=== PATIENT | male | born 1935 | race Caucasian/White ===

== ENCOUNTER 2018-11-01 21:10 | Inpatient (IN) ==
[2018-11-02] MEDS ORDERED: Ondansetron 4 MG/2 ML VIAL IVP PRN (00:06)
[2018-11-02] MEDS ORDERED: Naloxone 0.4 MG/ML INJ IVP PRN (00:06)
[2018-11-02] MEDS ORDERED: *HR* Heparin 5,000 UNIT/ML VIAL IVP PRN ×2 (00:11)
[2018-11-02] MEDS ORDERED: *HR* Dextrose 50 % in Water (Syg) 50 ML SYRINGE IVP PRN (00:37)
[2018-11-02] MEDS ORDERED: Dextrose Gel 15 GM/37.5 ML TUBE PO PRN ×2 (00:37)
[2018-11-02] MEDS ORDERED: D5% in Water 1,000 ML IVC PRN (00:37)
[2018-11-02 00:54] LABS: Basophils % 0.2 %; Hematocrit 28.4 % (37.5-50.1); Hemoglobin 9.3 g/dL (12.9-16.9); Immature Granulocytes % 1.4 % (0-4); Lymphocytes % 8.3 %; Mean Corpuscular HGB Conc 32.7 g/dL (31.6-35.5); Mean Corpuscular Hemoglobin 30.9 pg (28.0-33.3); Mean Corpuscular Volume 94.4 fL (83.0-100.0); Mean Platelet Volume 9.8 fL (9.4-12.4); Monocytes # 0.9 K/mcL (0.0-1.3); Monocytes % 7.4 %; Neutrophils # 10.3 K/mcL (1.6-8.9); Platelet Count 232 K/mcL (140-400); Red Blood Count 3.01 M/mcL (4.19-5.50); Red Cell Distribution Width 16.2 % (11.5-14.5); Segmented Neutrophils % 82.7 %; White Blood Count 12.5 K/mcL (4.3-11.1)
[2018-11-02 01:03] LABS: INR 1.1; Prothrombin Time 12.3 Seconds (9.4-12.1)
[2018-11-02 01:06] LABS: Activated Partial Thrombo Time 53.1 Seconds (26.0-36.0)
[2018-11-02 01:11] LABS: Albumin 3.4 g/dL (3.5-5.7); Albumin/Globulin Ratio 1.3 (1.1-2.2); Bilirubin,Total 0.4 mg/dL (0.3-1.0); Calcium 9.5 mg/dL (8.6-10.3); Globulin 2.7 g/dL (2.4-3.5); Magnesium 2.2 mg/dL (1.6-2.6); Potassium 5.3 mEq/L (3.5-5.1); Total Protein 6.1 g/dL (6.4-8.9)
[2018-11-02 01:13] LABS: Troponin I 1.61 ng/mL (< 0.04)
[2018-11-02] MEDS: Heparin 25,000 UNIT/250 ML D5W 25,000 UNIT/250 ML IV.SOLN IVC SCH (01:20)
[2018-11-02] MEDS: Insulin DETEMIR 100 UNIT/ML X5UNITS SQ SCH ×2 (02:07→20:00)
--- NOTE | 2018-11-02 03:22 | Internal Med History&Physical ---
Date of Encounter: 11/02/18 Time of Encounter: 03:01 Internal Medicine - H&P: HPI Chief complaint: Chest pain/shortness of breath History of present illness: Mr. Starkey is a 83 year old male with a past medical history of hypertension, diabetes, coronary artery disease status post CABG, valvular disease status post bioprosthetic aortic valve replacement, chronic lung disease, chronic kidney disease and lung cancer transitioning to hospice care who initially presented to [facility] due to reports of chest pain and increasing shortness of breath. Patient states that around 4:30 this afternoon he began having right- sided chest pain described as sharp with radiation to his left arm. Patient states that he got up to go answer the door when the pain started. Patient took 2 nitroglycerin glycerin tablets which did not help. No aggravating or alleviating factors. Pain improved somewhat after EMS arrived and placed him on oxygen. Patient reportedly has been saturating in the 70s on room air for the past 2 days. He was 78% last Monday during a doctor's office visit. states that they were in the process of getting him home oxygen today. She also reports that he was diagnosed with lung cancer several weeks ago. Not currently on chemotherapy and radiation therapy. Initial laboratory workup at [place] showed a potassium of 6.2, BNP of 900 and initial troponin of 0.21. Lactic acid within normal limits. Patient received calcium gluconate, albuterol as well as dextrose and insulin. EKG reportedly showed sinus tachycardia with left bundle branch block and diffuse ST depressions. Chest x-ray was performed concerning for congestive heart failure with small bilateral pleural effusions. Patient received 40 mg of Lasix IV push. Repeat troponin came back elevated at 0.8 and patient was subsequently started on a heparin drip prior to transfer. On my assessment patient was currently on BiPAP. Does not appear to be in respiratory distress, mentating well. Denies any chest pain currently. Patient currently DNR CCA. Past Med Surg Social Fam HX - Past Medical History Medical history: arthritis, cancer, CHF, COPD, coronary artery disease, diabetes, GERD, hyperlipidemia, hypertension, myocardial infarction, renal disease - Past Surgical History Surgical History: cataract, colectomy, coronary bypass (CABG), vascular surgery Additional surgical history: stents, valve replacement - Social History Smoking Status: Former smoker Alcohol use: none Drug use: none Internal Medicine - H&P: Meds Albuterol Sulfate [Ventolin Hfa] 90 mcg IH Q4HR PRN 11/02/18 [History] Amlodipine Besylate 10 mg PO DAILY 11/02/18 [History] Aspirin [Lo-Dose Aspirin EC] 81 mg PO DAILY 11/02/18 [History] Bifidobacterium Infantis [Align] 4 mg PO DAILY 11/02/18 [History] Calcium 600 + Vit D Tablet 600 mg PO DAILY 11/02/18 [History] Cilostazol [Pletal] 100 mg PO BID 11/02/18 [History] Clopidogrel [Plavix] 75 mg PO DAILY 11/02/18 [History] Ezetimibe [Zetia] 10 mg PO DAILY 11/02/18 [History] Fish Oil/Dha/Epa [Fish Oil 1,200 mg Fish Oil] 1,200 mg PO BID 11/02/18 [History] Insulin ASPART [Novolog Flexpen] 3 unit SQ DAILY 11/02/18 [History] Insulin Glargine,Hum.rec.anlog [Lantus Solostar] 15 unit SQ DAILY 11/02/18 [History] Labetalol HCl 200 mg PO BID 11/02/18 [History] Multivit-Min/Iron/Folic Acid/K [Adults Multivitamin Tablet] 1 each PO DAILY 11/02/18 [History] Nitroglycerin [Nitrostat] 0.4 mg SL Q5MIN 11/02/18 [History] Ondansetron HCl 8 mg PO Q6HR PRN 11/02/18 [History] Allergy/AdvReac Type Severity Reaction Status Date / Time ciprofloxacin Allergy Hives Verified 11/02/18 00:19 Usizfzd-Sme-Zhg Reductase Allergy Muscle Pain Verified 11/02/18 00:19 Inhibitor All Systems PM: A 10-system review of systems was performed and is negative for pertinent findings except as documented above in the HPI. - Constitutional Constitutional: no chills, no fever(s), no night sweats - EENT Eyes: no change in vision, no discharge, no pain, no photophobia Ears: no ear discharge, no ear pain, no tinnitus Nose, mouth and throat: no dysphagia, no nasal discharge, no neck pain, no sore throat - Cardiovascular Cardiovascular ROS IM: no chest pain, no diaphoresis, no dyspnea, no lightheadedness, no palpitations, no syncope - Respiratory Respiratory: no cough, no dyspnea, no wheezing, no excessive phlegm production - Gastrointestinal Gastrointestinal: no abdominal pain, no diarrhea, no hematemesis, no hematochezia, no melena, no nausea, no vomiting - Musculoskeletal Musculoskeletal ROS IM: no numbness, no tingling - Integumentary Integumentary IM: no rash, no unusual bruising - Neurological Neurological ROS: no confusion, no convulsions, no focal weakness, no numbness, no tingling, no tremor(s) - Hematologic/Lymphatic Hematologic/Lymphatic: no easy bruising - Constitutional Vitals: Temp Pulse Resp BP Pulse Ox 97.7 F 96 20 164/73 92 11/02/18 00:28 11/02/18 00:28 11/02/18 00:28 11/02/18 00:28 11/02/18 00:28 Exam: General: Alert and oriented Skin:Normal color, no rash, no lesions. HEENT:EOM, pupils equal, round and reactive. Cardiovascular:Normal S1 & S2, no rubs, murmurs or gallops. No JVD. Pulse regular. Lungs: crackles appreciated on the right lower lung base Abdomen:Soft, non-tender, no rigidity. Extremities: 2+ pitting edema bilaterally Neurological:Normal cognition and motor skills. Pulses:Carotid and radial pulses normal +2. Rest of the physical exam is non contributory Internal Med - H&P Results - Labs CBC & Chem 7: 11/02/18 00:35 11/02/18 07:01 Labs: Short CBC 11/02/18 Range/Units 00:35 WBC 12.5 H D (4.3-11.1) K/mcL Hgb 9.3 L (12.9-16.9) g/dL Hct 28.4 L (37.5-50.1) % Plt Count 232 (140-400) K/mcL Neutrophils # 10.3 H (1.6-8.9) K/mcL BMP 11/02/18 00:35 Sodium 138 Potassium 5.3 H Chloride 109 H Carbon Dioxide 20 L BUN 69 H Creatinine 3.51 H Glucose 232 H Calcium 9.5 Cardiac Enzymes 11/02/18 Range/Units 00:35 Troponin I 1.61 H* (< 0.04) ng/mL Liver Function 11/02/18 Range/Units 00:35 Total Bilirubin 0.4 (0.3-1.0) mg/dL AST 19 (13-39) Units/L ALT 12 (7-52) Units/L Alkaline Phosphatase 182 H (34-104) Units/L Albumin 3.4 L (3.5-5.7) g/dL - Assessment and Plan (1) Acute respiratory failure with hypoxia Current Visit: Yes Status: Acute Assessment and plan: Patient presenting with acute hypoxic respiratory failure with O2 saturation in the 70s on room air in the setting of chronic lung disease, COPD, lung cancer, end-stage renal disease and what appears to be acute CHF exacerbation. Patient currently tolerating BiPAP and mentating well. Patient was planning to transiti on to hospice care tomorrow in the setting of his lung cancer and chronic lung disease. We will attempt to wean off BiPAP. Patient does not want intubation. -ABG obtained showing a pH of 7.4, PCO2 0.9, PO2 68.9 -Continue BiPAP. -Will treat with duo nebs given history of COPD. -Patient appears to still produce urine. We will continue to attempt to diuresis with Lasix. Appreciate cardiology and nephrology recommendations. (2) History of lung cancer Current Visit: Yes Status: Acute Assessment and plan: Patient reporting recent diagnosis of lung cancer not currently on chemotherapy or radiation therapy. Patient transitioning to hospice care today. -Consider palliative consult. (3) Chest pain Current Visit: Yes Status: Acute Assessment and plan: Patient presenting with right-sided chest pain which appears to be atypical. Found to have an elevated troponin of 0.21. Troponin trended to 0.8 and now 1.61. Currently on heparin drip. Initial EKG showing sinus tachycardia with left bundle branch block and diffuse ST depressions. Repeat EKG obtained here shows sinus rhythm with subtle ST depressions in lead to and V5. Given significant improvement in EKG, I suspect that patient's significant hypoxemia likely contributing to demand ischemia and the abnormal findings on EKG and elevation in troponin obtained at [place]. This would also corresponded with patient's reported improvement in chest pain after oxygenation. Currently on heparin drip. -Telemetry -Continue to trend troponin -Continue heparin drip -Sublingual nitroglycerin as needed -Echocardiogram -Consult cardiology Qualifiers: Chest pain type: unspecified Qualified Code(s): R07.9 - Chest pain, unspecified (4) Hyperkalemia Current Visit: Yes Status: Acute Assessment and plan: Patient found to have a potassium of 6.2 in the setting of end-stage renal disease. Received calcium gluconate, albuterol and dextrose/insulin prior to transfer. Repeat potassium here now 5.3. -We will give 1 time Kayexalate. -We will give a one-time dose of insulin per sliding scale given his hyperglycemia which should help his hyperkalemia. -Nephrology consult (5) Acute exacerbation of CHF (congestive heart failure) Current Visit: Yes Status: Acute Assessment and plan: Patient presenting with shortness of breath with elevated BNP of 900 and chest x-ray findings are consistent with congestive heart failure with small bilateral pleural effusions. Patient received one-time dose of Lasix prior to transfer. He did produce 150 mL of urine shortly after arrival. Most recent echo in Jun of this year showed an EF of 65% with indeterminate diastolic function. -Strict I's and O's; daily weight -We will start patient on 40 mg Lasix IV push twice a day -Follow up cardiology recommendations. Qualifiers: Heart failure type: unspecified Qualified Code(s): I50.9 - Heart failure, unspecified (6) End stage renal disease Current Visit: Yes Status: Acute Assessment and plan: End-stage renal disease. Creatinine 3.51. Patient still appears to be producing urine. -Given patient's hyperkalemia and volume overload will consult nephrology for help in management. - Time Spent With Patient Total time spent is greater than 50% in coordination of care (as documented) at patient's floor/unit and/or counseling patient:
[2018-11-02] MEDS: Ipratropium/Albuterol Neb 3 ML IH SCH ×6 (04:02→23:14)
[2018-11-02 04:07] LABS: ABG Base Excess -6 mEq/L (-2 to 3); ABG HCO3 18 mEq/L (21-27); ABG Oxygen Saturation 94 % (95-98); ABG PCO2 27 mmHg (35-45); ABG PH 7.43 pH Units (7.32-7.45); ABG PO2 69 mmHg (85-104); ABG TCO2 19 mEq/L (20-26); Blood Gas Modality BiLevel; Blood Gas VT 730 cc
[2018-11-02] MEDS ORDERED: Insulin LISPRO 300 UNITS/3 ML VIAL SQ SCH ×2 (04:15→07:30)
[2018-11-02] MEDS: Furosemide 40 MG/4 ML VIAL IVP SCH ×2 (05:36→09:27)
[2018-11-02] MEDS ORDERED: Furosemide 40 MG/4 ML VIAL IVP SCH (06:00)
[2018-11-02 07:53] LABS: Potassium 5.1 mEq/L (3.5-5.1)
[2018-11-02 08:02] LABS: Troponin I 2.26 ng/mL (< 0.04)
[2018-11-02 08:22] LABS: Estimated Average Glucose 143 mg/dl
[2018-11-02] MEDS ORDERED: (Ezetimibe [Zetia] 10 MG) PO SCH (09:00)
[2018-11-02] MEDS ORDERED: Perflutren Lipid Microsphere 1.3 ML in 0.9 % Sodium Chloride 8.7 ML IVP ONE (09:03)
[2018-11-02] MEDS: Insulin LISPRO 300 UNITS/3 ML VIAL SQ SCH ×4 (09:15→21:30)
[2018-11-02] MEDS: amLODIPine 5 MG TABLET PO SCH (09:26)
[2018-11-02] MEDS: Aspirin Enteric Coated 81 MG Tablet PO SCH (09:26)
--- NOTE | 2018-11-02 09:30 | Nephrology Consult Note ---
Date of Encounter: 11/02/18 Time of Encounter: 09:28 Assessment and Plan (1) Acute kidney injury superimposed on chronic kidney disease Current Visit: Yes Status: Acute This is an 83 y/o M with PMHx significant for Chronic Kidney Disease Stage 4, HTN, HLD, DM, CAD s/p CABG, Valvular heart disease s/p aortic valve replacement, lung cancer who initially presented to [facility] with chest pain and increasing shortness of breath - Presents with BUN/Cr = 70/3.58 with GFR = 16 (Baseline Cr = 2-3, and baseline GFR = 15-30 (CKD Stage IV)) - S/p dose of 40mg Lasix IVP - UO this AM = 200mL - Troponins trending up: 0.8 => 1.61 => 2.26; BNP = 900; Cardiology on board; recommend medical management - Hyperkalemic = 6.1 on presentation, which improved with medical therapy PLAN: Patient presents with Acute Kidney injury superimposed on chronic kidney disease stage IV. Patient presented with chest pain and elevated troponins suggesting NSTEMI. Phys exam shows 2+ pitting edema bilaterally. He is s/p initial dose of Lasix 40mg IVP. Patient's POLINA likely secondary to NSTEMI, and pre-renal in nature. - Renal Ultrasound to evaluate for structural abnormalities - Urine studies including UA, urine sodium, urine cr, urine eosinophils, urine microalbumin, urea - Daily BMPs; monitor kidney function - Stricts Is and Os - Daily weights - Renal Diet UPDATE: Given that patient is pursuing hospice, we do suggest hydration as needed, and other comfort measures as needed. (2) Hyperkalemia Current Visit: Yes Status: Acute Initial K = 6.2 - S/p calcium gluconate, albuterol, dextrose/ insulin - Repeat trending down K = 5.1 - EKG: Did show signs of mild ST Segment depression, but otherwise did not show peaked T waves, WI interval lengthening, widening QRS - Patient additionally given dose of Kayexalate PLAN: - Cont to monitor BMPs - Kayexalate as needed - Insulin sliding scale treating hyperglycemia - PRN Albuterol (3) CKD (chronic kidney disease) stage 4, GFR 15-29 ml/min Current Visit: Yes Status: Acute Hx of CKD Stage IV - Baseline Cr = 2-3, and baseline GFR = 15-30 (CKD Stage IV) - Pt still producing urine PLAN: - Monitor urine output - Outpatient Nephrology History of Present Illness - Reason for Consult Consult date: 11/02/18 end stage renal disease, hyperkalemia Requesting physician: Blossom Burns - Chief Complaint Right Sided Chest Pain and SOB - History of Present Illness This is an 83 y/o M with PMHx significant for Chronic Kidney Disease Stage 4, HTN, HLD, DM, CAD s/p CABG, Valvular heart disease s/p aortic valve replacement, lung cancer who initially presented to [facility] with chest pain and increasing shortness of breath. He reports one day history of sharp right sided chest pain with radiation to the left arm. Pain was initially not relieved with nitroglycerin. EMS was called and by the time they arrived, pain had resolved. Patient has been with O2 sats in 70s on RA for the past 2-3 days. Hx of Lung Cancer diagnosed only a few weeks ago, transitioning to hospice care. At [facility], initial workup indicated K = 6.2, with BNP = 900, a nd initial trop = 0.21. Patient received calcium gluconate, albuterol, dextrose, insulin. EKG initially showed sinus tachycardia with left bundle branch block and diffuse ST depressions. CXR indicated signs suggestive of CHF with b/l pleural effusions. Patient given dose of 40mg IVP Lasix. Repeat trop was elevated = 0.8. Patient was started on Heparin drip and transferred to [facility]. As of this morning, patient's vitals are hemodynamically stable. Oxygen saturation appropriate on BIPAP. Has made adequate UO as of this morning. Potassium has trended down with interventions, and at last check K = 5.1. BUN/Cr = 70/3.58 with GFR = 16 (Baseline Cr = 2-3, and baseline GFR = 15-30 (CKD Stage IV)) Troponin continues to rise with repeats = 1.61 => 2.26. Patient currently on Heparin drip. On my exam this morning, patient resting comfortably on BIPAP, currently in no acute distress. States that he previously saw Director Of Strategic Sales at [facility], but has not seen him in a while. He has never been on dialysis for any reason. Does note recent antibiotic use (he thinks he was prescribed Azithromycin) and notes recent decreased PO intake. However, has not noticed changed in urine output. Denies recent NSAID use, and does not take ACEI or ARB. Otherwise, denies confusion, headache, current chest pain, respiratory distress, abdominal pain, n/v/d. Exam was notable for 2+ pitting edema of B/L lower extremities. Nephrology was consulted due to hyperkalemia and POLINA on CKD. Past Med Surg Social Fam HX - Past Medical History Attestation: Yes The following information was validated with the patient. Source: patient, old records reviewed Medical history: arthritis, cancer, CHF, COPD, coronary artery disease, diabetes, GERD, hyperlipidemia, hypertension, myocardial infarction, renal disease - Past Surgical History Surgical History: cataract, colectomy, coronary bypass (CABG), vascular surgery Additional surgical history: stents, valve replacement - Social History Smoking Status: Former smoker Alcohol use: none Drug use: none Medications and Allergies Albuterol Sulfate [Ventolin Hfa] 90 mcg IH Q4HR PRN 11/02/18 [History] Amlodipine Besylate 10 mg PO DAILY 11/02/18 [History] Aspirin [Lo-Dose Aspirin EC] 81 mg PO DAILY 11/02/18 [History] Bifidobacterium Infantis [Align] 4 mg PO DAILY 11/02/18 [History] Calcium 600 + Vit D Tablet 600 mg PO DAILY 11/02/18 [History] Cilostazol [Pletal] 100 mg PO BID 11/02/18 [History] Clopidogrel [Plavix] 75 mg PO DAILY 11/02/18 [History] Ezetimibe [Zetia] 10 mg PO DAILY 11/02/18 [History] Fish Oil/Dha/Epa [Fish Oil 1,200 mg Fish Oil] 1,200 mg PO BID 11/02/18 [History] Insulin ASPART [Novolog Flexpen] 3 unit SQ DAILY 11/02/18 [History] Insulin Glargine,Hum.rec.anlog [Lantus Solostar] 15 unit SQ DAILY 11/02/18 [Hi story] Multivit-Min/Iron/Folic Acid/K [Adults Multivitamin Tablet] 1 each PO DAILY 11/02/18 [History] Nitroglycerin [Nitrostat] 0.4 mg SL Q5MIN 11/02/18 [History] RX: Labetalol HCl 200 mg PO BID 11/02/18 [History] RX: Ondansetron HCl 8 mg PO Q6HR PRN 11/02/18 [History] Allergy/AdvReac Type Severity Reaction Status Date / Time ciprofloxacin Allergy Hives Verified 11/02/18 00:19 Ufazfgw-[id number]-Frh Reductase Allergy Muscle Pain Verified 11/02/18 00:19 Inhibitor Review of Systems Constitutional: fatigue, lethargy, no frequent falls, no headache(s), no malaise Nose, mouth and throat: no dizziness, no facial pain, no headache(s), no neck pain Cardiovascular: chest pain, dyspnea, radiating jaw, neck or arm pain, no irregular heart rhythm, no palpitations, no syncope Respiratory: dyspnea Gastrointestinal: no abdominal pain, no diarrhea, no nausea, no vomiting Musculoskeletal: radiating pain into limb Integumentary: swelling Neurological: no confusion, no dizziness, no focal weakness, no headache(s), no syncope Exam - Vital Signs Vital signs: Initial Vital Signs Resp Pulse Ox 20 96 11/01/18 23:40 11/01/18 23:40 Vital Signs - Last 8 Hours Temp Pulse Resp BP Pulse Ox 11/02/18 07:45 97.5 F L 94 29 173/74 97 11/02/18 07:33 23 93 11/02/18 04:43 97.9 F 94 20 148/72 93 11/02/18 03:58 25 92 Intake and Output 11/01/18 11/02/18 11/02/18 23:59 07:59 15:59 Intake Total 160 / 160 Output Total 200 / 200 Balance -40 / -40 Intake: Oral 160 / 160 Output: Urine 200 / 200 Other: Stool Size Large Stool Consistency loose Stool Color Brown # Voids 1 Weight 65 kg 65 kg Blood Glucose* 258 139 Patient Weight 11/02/18 23:59 Weight 65 kg - General Appearance General appearance: well-developed, well-nourished, appears started age Exam: Resting comfortably at bedside on BIPAP. No acute distress. EENT: hearing intact Neck: no JVD Respiratory: clear Cardiology: no murmurs, normal S1, normal S2 Gastrointestinal: normoactive bowel sounds, no tenderness, no guarding, no organomegaly, no masses Integumentary: no rash, warm and dry Neurologic: no focal deficit, alert and oriented x3, strength 5/5 Musculoskeletal: no deformities, no cyanosis Additional Comments: 2+ Pitting Edema of B/L Lower Extremities Psychiatric: mood/affect appropriate Results - Lab Results 11/02/18 00:35 11/02/18 07:01 Most recent lab results 11/02/18 11/02/18 11/02/18 00:35 03:52 07:01 ABG pH 7.43 ABG pCO2 27 L ABG pO2 69 L ABG HCO3 18 L ABG O2 Saturation 94 L Calcium 9.5 10.0 Magnesium 2.2 - Image Kidney/bladder ultrasound: pending Consult Discharge Plan - Plan Referrals: Mary Anne Brown MD [Primary Care Provider] -
--- NOTE | 2018-11-02 11:56 | Cardiology Consult Note ---
Date of Encounter: 11/02/18 Time of Encounter: 10:30 Assessment and Plan (1) Chest pain Current Visit: Yes Status: Acute Given patient's DNR-CCA status and his verbalized desire to focus on being comfortable, no acute cardiac intervention is warranted. - Diuresis per nephrology's recommendations- - Continue BiPAP to maintain oxygenation status and comfort - Continue labetalol, aspirin, heparin - Continue amlodipine, cilostazol: Patient's history states CHF, but normal LVEF in June. BNP elevated this admit but negative for CHF per Ellis criteria. Qualifiers: Chest pain type: unspecified Qualified Code(s): R07.9 - Chest pain, unspecified Discussion w patient/family: The assessment and plan as outlined above was discussed with the patient and/or family members who expressed understanding and agreement. All questions were answered. Thank you for involving us in the care of your patient. Please call with any questions. History of Present Illness Consult date: 11/02/18 History of present illness: Mr. Starkey is a 83 year old male who came to [place] from [place] on 11/01/18 for CP with radiation to left arm for 1 day plus increasing SOB. O2 sat in 70s on RA. Of note, he was planning to go to hospice 2/2 diagnosis of stage 4 lung cancer a few weeks ago and CKD. He does not want to pursue chemo or radiation. Patient is DNR-CCA and stated here that he does not want interventions beyond medical management. At [place], trop elevated at 0.21, BNP 900, K+ 6.2. At [place] troponin uptrending and 2.26 at last check. EKG with LBBB, sinus tach and nonspecific ST depressions. CXR showed bilateral pleural effusions. Overall picture consistent with NSTEMI. PMH also significant for aortic valve replacement, CABG. Echo in June 2018 showed LVEF WNL at 65%. Today patient on BiPAP, states he is comfortable. Past Med Surg Social Fam HX - Past Medical History Medical history: arthritis, cancer, CHF, COPD, coronary artery disease, diabetes, GERD, hyperlipidemia, hypertension, myocardial infarction, renal disease - Past Surgical History Surgical History: cataract, colectomy, coronary bypass (CABG), vascular surgery Additional surgical history: stents, valve replacement - Social History Smoking Status: Former smoker Alcohol use: none Drug use: none Medications and Allergies Albuterol Sulfate [Ventolin Hfa] 90 mcg IH Q4HR PRN 11/02/18 [History] Amlodipine Besylate 10 mg PO DAILY 11/02/18 [History] Aspirin [Lo-Dose Aspirin EC] 81 mg PO DAILY 11/02/18 [History] Bifidobacterium Infantis [Align] 4 mg PO DAILY 11/02/18 [History] Calcium 600 + Vit D Tablet 600 mg PO DAILY 11/02/18 [History] Cilostazol [Pletal] 100 mg PO BID 11/02/18 [History] Clopidogrel [Plavix] 75 mg PO DAILY 11/02/18 [History] Ezetimibe [Zetia] 10 mg PO DAILY 11/02/18 [History] Fish Oil/Dha/Epa [Fish Oil 1,200 mg Fish Oil] 1,200 mg PO BID 11/02/18 [History] Insulin ASPART [Novolog Flexpen] 3 unit SQ DAILY 11/02/18 [History] Insulin Glargine,Hum.rec.anlog [Lantus Solostar] 15 unit SQ DAILY 11/02/18 [History] Labetalol HCl 200 mg PO BID 11/02/18 [History] Multivit-Min/Iron/Folic Acid/K [Adults Multivitamin Tablet] 1 each PO DAILY 11/02/18 [History] Nitroglycerin [Nitrostat] 0.4 mg SL Q5MIN 11/02/18 [History] Ondansetron HCl 8 mg PO Q6HR PRN 11/02/18 [History] Allergy/AdvReac Type Severity Reaction Status Date / Time ciprofloxacin Allergy Hives Verified 11/02/18 00:19 Cjolxvv-Dba-Ldc Reductase Allergy Muscle Pain Verified 11/02/18 00:19 Inhibitor All Systems Review: ROS limited due to patient on BiPAP, rapid desaturation when mask lifted to talk. - Cardiovascular Cardiovascular: chest pain with exertion - Respiratory Respiratory: other (Lung cancer stage IV, no chemo/rad) - Genitourinary Genitourinary: other (CKD) Physical Examination General: Conversant, No Apparent Distress HEENT: Atraumatic, Normocephaly, Mucus Membranes Moist Neck: No JVD, Normal carotid pulses Cardiac: Reg Rate and Rhythm, Normal S1 and S2, No Murmur Lungs: Normal Breath Sounds Neuro: Alert and responsive, No focal deficits noted Abdomen: Soft, Non-Tender Skin: No rashes noted on visualized skin Musculoskeletal: No Chest Wall Tenderness Extremities: No Clubbing, No Cyanosis, No Edema, Normal Pulses (Strong UE pulses bilaterally, LE palpable bilaterally but weak) Results 11/02/18 00:35 11/02/18 07:01 Lab Results 11/02/18 11/02/18 11/02/18 00:35 00:35 00:35 WBC 12.5 H D Hgb 9.3 L Hct 28.4 L Plt Count 232 INR 1.1 APTT 53.1 H Sodium 138 Potassium 5.3 H Chloride 109 H Carbon Dioxide 20 L BUN 69 H Creatinine 3.51 H Glucose 232 H Calcium 9.5 Magnesium 2.2 Total Bilirubin 0.4 AST 19 ALT 12 Alkaline Phosphatase 182 H Troponin I 1.61 H* B-Natriuretic Peptide 11/02/18 11/02/18 00:35 07:01 WBC Hgb Hct Plt Count INR APTT Sodium 141 Potassium 5.1 Chloride 109 H Carbon Dioxide 22 L BUN 70 H Creatinine 3.58 H Glucose 137 H Calcium 10.0 Magnesium Total Bilirubin AST ALT Alkaline Phosphatase Troponin I 2.26 H* B-Natriuretic Peptide 880 H - Imaging and Cardiology Chest Xray: report reviewed Consult Discharge Plan - Plan Referrals: Mary Anne Brown MD [Primary Care Provider] -
--- NOTE | 2018-11-02 12:54 | Event Note ---
Date of Encounter: 11/02/18 Time of Encounter: 10:00 H & P reviewed, pt seen at bedside. NSTEMI: Type I vs type II. Troponins continues to rise, weill trend for now but provided no escalation of care, cardiolgoy not plannig cath for the pt Resp failure with hypoxia: Due to underlying lung CA and heart failure, continues to be on BIPAP Heart faikure: continue to diurese with lasix 40mg BID. COntinues to be on BiPAP. Nephro on board Goals of care: per report , pt was being transitioned to be hospice. Will consult palliatve care if the pt can be trasnitoined from here as the prognosis seems dismal at this point consideing the active issues.
--- NOTE | 2018-11-02 14:48 | Event Note ---
Date of Encounter: 11/02/18 Time of Encounter: 12:00 Conducted bedside meeting with patient. Patient now off Bipap and on 10L Oxy mask. Patient states that he was recently diagnosed (within past couple weeks with lung cancer) Patient reports stage 4 lung cancer and decided to enroll in hospice care. He did not have a chance to be enrolled before suffering an event of chest pain resulting in a NSTEMI. Cardiology recommend conservative management with no cath. Called [facility] and Oxygen has been delivered to the home. Recommended hospital bed and bedside table to facilitate breathing and comfort. Patient agree to DME. Patients daughter is intake nurse at hospice agency and will be notified of DME need. Patient may need Bipap at home and this would be covered under hospice for comfort with dyspnea management. Family at bedside. Updated on POC. Patient placed back on Bipap for comfort.
[2018-11-02] MEDS: *HR* LORazepam 2 MG/ML VIAL IVP PRN ×2 (15:34→19:59)
[2018-11-03] MEDS: *HR* LORazepam 2 MG/ML VIAL IVP PRN ×6 (01:18→22:21)
[2018-11-03] MEDS: Ipratropium/Albuterol Neb 3 ML IH SCH ×6 (04:01→23:38)
[2018-11-03 04:32] LABS: Basophils % 0.3 %; Eosinophils # 0.1 K/mcL (0.0-0.6); Eosinophils % 0.5 %; Hematocrit 30.1 % (37.5-50.1); Hemoglobin 9.6 g/dL (12.9-16.9); Immature Granulocytes % 1.4 % (0-4); Lymphocytes # 2.1 K/mcL (0.6-4.6); Lymphocytes % 17.1 %; Mean Corpuscular HGB Conc 31.9 g/dL (31.6-35.5); Mean Corpuscular Hemoglobin 30.3 pg (28.0-33.3); Mean Platelet Volume 9.9 fL (9.4-12.4); Monocytes # 1.5 K/mcL (0.0-1.3); Monocytes % 11.8 %; Neutrophils # 8.6 K/mcL (1.6-8.9); Platelet Count 249 K/mcL (140-400); Red Blood Count 3.17 M/mcL (4.19-5.50); Red Cell Distribution Width 16.6 % (11.5-14.5); Segmented Neutrophils % 68.9 %; White Blood Count 12.4 K/mcL (4.3-11.1)
[2018-11-03 04:45] LABS: Potassium 4.1 mEq/L (3.5-5.1)
[2018-11-03 04:46] LABS: Calcium 9.3 mg/dL (8.6-10.3)
[2018-11-03] MEDS: Heparin 25,000 UNIT/250 ML D5W 25,000 UNIT/250 ML IV.SOLN IVC SCH ×2 (05:27→05:46)
[2018-11-03] MEDS: Insulin LISPRO 300 UNITS/3 ML VIAL SQ SCH ×4 (07:36→20:03)
[2018-11-03] MEDS: amLODIPine 5 MG TABLET PO SCH (09:33)
[2018-11-03] MEDS: Aspirin Enteric Coated 81 MG Tablet PO SCH (09:33)
--- NOTE | 2018-11-03 15:43 | Internal Med Progress Note ---
Hospitalist Progress Note - Encounter Date of Encounter: 11/03/18 Time of Encounter: 11:30 - Subjective Interval History: Patient lying down in bed. Initially had BiPAP mask on. Continues to have some cough. Reports that he is able to breathe easier but was desaturating into the 70s without oxygen during my evaluation. He was placed on nasal cannula with slow improvement to the 80s. Denies any chest pain. Wishes to go home with hospice tomorrow. - Exam Vitals: Temp Pulse Resp BP Pulse Ox 98.0 F 88 24 166/66 96 11/03/18 10:49 11/03/18 10:49 11/03/18 11:34 11/03/18 10:49 11/03/18 11:34 Exam: General: Patient is alert, moderate distress, oriented x 3 ENT: Mucous membranes moist Respiratory: Coarse breath sounds, basal crackles bilaterally Cardiovascular: Regular rate and rhythm. s1 and s2 normal No clicks, rubs, gallops, or murmurs. No pedal edema Abdomen: Abdomen is soft, nontender. Bowel sounds are present Musculoskeletal: Spontaneously moving all extremities Skin: warm, dry, intact. Neuro: Alert oriented x 3 normal cranial nerves, no focal deficits - Assessment and Plan (1) Acute respiratory failure with hypoxia Current Visit: Yes Status: Acute (2) History of lung cancer Current Visit: Yes Status: Acute (3) Chest pain Current Visit: Yes Status: Acute (4) Hyperkalemia Current Visit: Yes Status: Acute (5) Acute exacerbation of CHF (congestive heart failure) Current Visit: Yes Status: Acute (6) Acute kidney injury superimposed on chronic kidney disease Current Visit: Yes Status: Acute (7) CKD (chronic kidney disease) stage 4, GFR 15-29 ml/min Current Visit: Yes Status: Chronic DVT Prophylaxis: Patient on IV heparin drip - Summary of Assessment and Plan Summary of Assessment and Plan: Chest pain: Now resolved. Troponins peaked at 2.26 and are now trending down. Continue IV heparin drip for 24-48 hours per cardiology recommendations. Continue aspirin, Plavix and labetalol. Acute on chronic hypoxic respiratory failure: Continue O2 supplementation and BiPAP use as needed. Monitor vital signs. Goals of care: Patient wishes to go home with hospice. This will be arranged at discharge. Patient will most likely need BiPAP at home for comfort. He will a lso need home oxygen. Diabetes mellitus type 2: well-controlled. Continue diabetic diet and sliding scale insulin. Acute kidney injury on chronic kidney disease stage IV: Creatinine improving. Nephrology consult appreciated. Hyperkalemia has resolved. Creatinine 2.69 today. Acute diastolic congestive heart failure: Responded well to Lasix. Clinically doing better. Will repeat chest x-ray in morning. Will place patient on oral Lasix. History of lung cancer: Patient wishes to be on hospice. Will make arrangements for this and plan for discharge tomorrow. DVT prophylaxis: Patient is on IV heparin - Time Spent with Patient Total time spent is greater than 50% in coordination of care (as documented) at patient's floor/unit and/or counseling patient: Internal Medicine: Result - Labs CBC & Chem 7: 11/03/18 03:46 11/03/18 03:46 Labs: Short CBC 11/03/18 Range/Units 03:46 WBC 12.4 H (4.3-11.1) K/mcL Hgb 9.6 L (12.9-16.9) g/dL Hct 30.1 L (37.5-50.1) % Plt Count 249 (140-400) K/mcL Neutrophils # 8.6 (1.6-8.9) K/mcL BMP 11/03/18 03:46 Sodium 142 Potassium 4.1 Chloride 112 H Carbon Dioxide 21 L BUN 69 H Creatinine 2.69 H Glucose 43 L Calcium 9.3 - ABG Interpretation ABG results: ABG ABG pH 7.43 pH Units (7.32-7.45) 11/02/18 03:52 ABG pCO2 27 mmHg (35-45) L 11/02/18 03:52 ABG pO2 69 mmHg (85-104) L 11/02/18 03:52 ABG O2 Saturation 94 % (95-98) L 11/02/18 03:52 PT/INR, D-dimer PT 12.3 Seconds (9.4-12.1) H 11/02/18 00:35 Consult Discharge Plan - Plan Referrals: Mary Anne Brown MD [Primary Care Provider] - (3) Chest pain Qualifiers: Chest pain type: unspecified Qualified Code(s): R07.9 - Chest pain, unspecified (5) Acute exacerbation of CHF (congestive heart failure) Qualifiers: Heart failure type: unspecified Qualified Code(s): I50.9 - Heart failure, unspecified
[2018-11-03] MEDS ORDERED: traMADol 50 MG TABLET PO PRN (16:53)
[2018-11-03] MEDS: Furosemide 40 MG TABLET PO SCH (17:15)
[2018-11-03] MEDS: Insulin DETEMIR 100 UNIT/ML X5UNITS SQ SCH (21:49)
[2018-11-03] MEDS ORDERED: Saline Nasal Spray 44 ML BOTTLE NS PRN (22:03)
[2018-11-04] MEDS: *HR* LORazepam 2 MG/ML VIAL IVP PRN ×8 (01:00→20:47)
[2018-11-04] MEDS: Morphine Sulfate Oral CONC 10 MG/0.5 ML ORAL.SYG SL PRN ×4 (01:54→23:03)
[2018-11-04] MEDS: Heparin 25,000 UNIT/250 ML D5W 25,000 UNIT/250 ML IV.SOLN IVC SCH (01:54)
[2018-11-04] MEDS: Ipratropium/Albuterol Neb 3 ML IH SCH ×6 (03:17→23:34)
[2018-11-04 04:44] LABS: Basophils % 0.3 %; Eosinophils % 0.4 %; Hematocrit 25.9 % (37.5-50.1); Hemoglobin 8.2 g/dL (12.9-16.9); Immature Granulocytes % 0.8 % (0-4); Lymphocytes # 1.7 K/mcL (0.6-4.6); Lymphocytes % 17.2 %; Mean Corpuscular HGB Conc 31.7 g/dL (31.6-35.5); Mean Corpuscular Hemoglobin 30.5 pg (28.0-33.3); Mean Corpuscular Volume 96.3 fL (83.0-100.0); Mean Platelet Volume 10.4 fL (9.4-12.4); Monocytes % 10.3 %; Platelet Count 199 K/mcL (140-400); Red Blood Count 2.69 M/mcL (4.19-5.50); White Blood Count 9.9 K/mcL (4.3-11.1)
[2018-11-04 05:01] LABS: Potassium 4.5 mEq/L (3.5-5.1)
[2018-11-04] MEDS: amLODIPine 5 MG TABLET PO SCH (08:21)
[2018-11-04] MEDS: Furosemide 40 MG TABLET PO SCH ×2 (08:21→17:17)
[2018-11-04] MEDS: Aspirin Enteric Coated 81 MG Tablet PO SCH (08:22)
[2018-11-04] MEDS: Insulin LISPRO 300 UNITS/3 ML VIAL SQ SCH ×4 (08:27→21:30)
--- NOTE | 2018-11-04 14:22 | Internal Med Progress Note ---
Hospitalist Progress Note - Encounter Date of Encounter: 11/04/18 Time of Encounter: 10:00 - Subjective Interval History: Patient was seen with his family this area. He is alert but not oriented. He seems to use his accessory muscles with breathing. - Exam Vitals: Temp Pulse Resp BP Pulse Ox 97.7 F 80 20 145/56 90 11/04/18 11:57 11/04/18 11:57 11/04/18 11:57 11/04/18 11:57 11/04/18 11:57 Exam: General: Patient is alert, but not oriented x 3. Mild distress. ENT: Mucous membranes moist Respiratory: Coarse breath sounds, basal crackles bilaterally, use accessory muscles. Cardiovascular: Regular rate and rhythm. Trace pedal edema Abdomen: Abdomen is soft, nontender. Bowel sounds are present Musculoskeletal: Spontaneously moving all extremities Skin: warm, dry, intact. Neuro: Alert but not oriented x 3 - Assessment and Plan (1) Acute respiratory failure with hypoxia Current Visit: Yes Status: Acute (2) History of lung cancer Current Visit: Yes Status: Acute (3) Chest pain Current Visit: Yes Status: Resolved (4) Hyperkalemia Current Visit: Yes Status: Resolved (5) Acute exacerbation of CHF (congestive heart failure) Current Visit: Yes Status: Acute (6) Acute kidney injury superimposed on chronic kidney disease Current Visit: Yes Status: Acute (7) CKD (chronic kidney disease) stage 4, GFR 15-29 ml/min Current Visit: Yes Status: Chronic - Summary of Assessment and Plan Summary of Assessment and Plan: Mr. Starkey is a 83 year old male with a past medical history of hypertension, diabetes, coronary artery disease status post CABG, valvular disease status post bioprosthetic aortic valve replacement, chronic lung disease, chronic kidney disease and lung cancer transitioning to hospice care who initially presented to [facility] due to reports of chest pain and increasing shortness of breath. His symptoms were managed as following. Acute on chronic hypoxic respiratory failure: - X-ray at presentation revealed worsening interstitial edema and possible pneumonia. - Patient is requiring 15 L of high flow oxygen and BiPAP PRN - He has a newly diagnosed metastatic lung cancer 3 weeks ago and he wishes to go on hospice on comfort care. Continue with Lasix. - Discussed with the family that evening his comfort care, treatment would not be appropriate and his oxygen requirement my continued to be high. Chest pain: Now resolved. -Troponins peaked at 2.26 and are now trending down. Was on IV heparin drip for 48 hours per cardiology recommendations, dc today - Continue aspirin, Plavix and labetalol. Goals of care: - Patient wishes to go home with hospice. This will be arranged at discharge. Patient will most likely need BiPAP at home for comfort. He will also need home oxygen. Diabetes mellitus type 2: -well-controlled. Continue diabetic diet and sliding scale insulin. Acute kidney injury on chronic kidney disease stage IV: -Creatinine improving. Nephrology consult appreciated. Hyperkalemia has resolved. Creatinine 2.69 today. Acute decompensated HFpEF: -Responded well to Lasix. On oral Lasix 40 mg twice a day. i/o not well documented. History of lung cancer: -Patient wishes to be on hospice. Will make arrangements for this and plan for discharge tomorrow. Pulmonary hypertension. DVT prophylaxis: Patient is SC heparin - Time Spent with Patient Total time spent is greater than 50% in coordination of care (as documented) at patient's floor/unit and/or counseling patient: Plan of Care Discussed with: patient Internal Medicine: Result - Labs CBC & Chem 7: 11/04/18 03:47 11/04/18 03:47 Labs: Short CBC 11/04/18 Range/Units 03:47 WBC 9.9 (4.3-11.1) K/mcL Hgb 8.2 L (12.9-16.9) g/dL Hct 25.9 L (37.5-50.1) % Plt Count 199 (140-400) K/mcL Neutrophils # 7.0 (1.6-8.9) K/mcL BMP 11/04/18 03:47 Sodium 143 Potassium 4.5 Chloride 113 H Carbon Dioxide 21 L BUN 71 H Creatinine 2.42 H Glucose 143 H Calcium 9.0 - ABG Interpretation ABG results: ABG ABG pH 7.43 pH Units (7.32-7.45) 11/02/18 03:52 ABG pCO2 27 mmHg (35-45) L 11/02/18 03:52 ABG pO2 69 mmHg (85-104) L 11/02/18 03:52 ABG O2 Saturation 94 % (95-98) L 11/02/18 03:52 PT/INR, D-dimer PT 12.3 Seconds (9.4-12.1) H 11/02/18 00:35 Consult Discharge Plan - Plan Referrals: Mary Anne Brown MD [Primary Care Provider] - (3) Chest pain Qualifiers: Chest pain type: unspecified Qualified Code(s): R07.9 - Chest pain, unspecified (5) Acute exacerbation of CHF (congestive heart failure) Qualifiers: Heart failure type: unspecified Qualified Code(s): I50.9 - Heart failure, unspecified
[2018-11-04] MEDS: *HR* Heparin 5,000 UNIT/ML VIAL SQ SCH (17:17)
[2018-11-04] MEDS: Insulin DETEMIR 100 UNIT/ML X5UNITS SQ SCH (21:30)
[2018-11-05] MEDS: Ipratropium/Albuterol Neb 3 ML IH SCH ×3 (04:23→11:25)
[2018-11-05] MEDS: *HR* LORazepam 2 MG/ML VIAL IVP PRN (05:24)
[2018-11-05] MEDS: *HR* Heparin 5,000 UNIT/ML VIAL SQ SCH (05:27)
[2018-11-05] MEDS: Insulin LISPRO 300 UNITS/3 ML VIAL SQ SCH ×2 (07:35→11:09)
[2018-11-05] MEDS: Furosemide 40 MG TABLET PO SCH (07:45)
[2018-11-05] MEDS: amLODIPine 5 MG TABLET PO SCH (07:45)
[2018-11-05] MEDS: Aspirin Enteric Coated 81 MG Tablet PO SCH (07:45)
[2018-11-05] MEDS ORDERED: Haloperidol Oral Conc 10 MG/5 ML UDC PO PRN (10:39)
[2018-11-05] MEDS: *HR* LORazepam Oral Conc 2 MG/ML SL PRN ×2 (11:14→13:33)
[2018-11-05 11:55] VITALS: BP 147/54
--- NOTE | 2018-11-05 11:59 | Palliative - Consult Note ---
Date of Encounter: 11/05/18 Time of Encounter: 09:30 - Assessment and Plan (1) Acute respiratory failure with hypoxia Current Visit: Yes Status: Acute Assessment and plan: Off Bipap since yesterday. On Oxygen nc 10L, O2sat 78% Morphine 5 mg q4hrs prn (2) Agitation Current Visit: Yes Status: Acute Assessment and plan: Patient receiving Ativan 1 mg IV prn, 8 doses in 24 hrs. Pt to be discharged home. will change Ativan to SL will add haldol TID. (3) Counseling regarding advance care planning and goals of care Current Visit: Yes Status: Acute Assessment and plan: 35 minutes meeting with pt's , daughter and son. Patient unable to participate in conversation. Family confirmed that pt wants home hospice. Discussed that in dipti of worsening of symptoms, pt will qualify for GIP, but family stated that pt's most important wish at this point is to return home. Daughter stated that equipment have been delivered. No Bipap was ordered, per family pt was more confused and agitated with Bipap so they declined. Plan of care reviewed. Code status chenged to DNRCC, documentation signed and to be added to medical record. Discussed with primary hospitalist and nursing to coordinate discharge. Prescriptions for Haldol, ativan and morphine provided. (4) Acute exacerbation of CHF (congestive heart failure) Current Visit: Yes Status: Acute Qualifiers: Heart failure type: unspecified Qualified Code(s): I50.9 - Heart failure, unspecified (5) Acute kidney injury superimposed on chronic kidney disease Current Visit: Yes Status: Acute (6) History of lung cancer Current Visit: Yes Status: Acute (7) Palliative care encounter Current Visit: Yes Status: Acute Palliative-CN HPI - Data of Consult Consult date: 11/03/18 Requesting Physician: Ervin Agrawal Primary Care Provider: Mary Anne Brown MD - Consult Narrative Palliative Care/Comfort Measures: Palliative care Reason for consult: Hospice evaluation History of present illness: Mr. Starkey is a 83 year old male with a past medical history of hypertension, diabetes, coronary artery disease status post CABG, valvular disease status post bioprosthetic aortic valve replacement, chronic lung disease, chronic kidney disease and lung cancer, who initially presented to [facility] due to reports of chest pain and increasing shortness of breath. Patient was admitted for NSTEMI, Cardiology recommend conservative management with no cath. Per record patient was recently diagnosed (within past couple weeks) with stage 4 lung cancer and decided to enroll in hospice care. He did not have a chance to be enrolled before suffering an event of chest pain resulting in a NSTEMI. Palliative consult was called for hospice eval. Palliative care RECORDIST Ani saw patient on 11/03 and confirmed wishes for home with hospice, [facility] was called. However, patient was not discharged during the week-end. Today noticed increased use of lorazepam 8 doses in 24hrs and morphine 5 doses in 24 hrs. At the time of exam, pt was drowsy, responsive to name calling, but became agitated once aroused. Per family present at the bedside, patient's agitated may be related to the fact that he wants to go back home. CC: Ervin Agrawal - Time Spent with Patient Time: Total time spent is greater than 50% in coordination of care (as documented) at patient's floor/unit and/or counseling patient: Time with patient: 60 minutes (40 minutes with patient as documented, 20 minutes chart review and documentation.) Past Med Surg Social Fam HX - Past Medical History Medical history: arthritis, cancer, CHF, COPD, coronary artery disease, diabetes, GERD, hyperlipidemia, hypertension, myocardial infarction, renal disease - Past Surgical History Surgical History: cataract, colectomy, coronary bypass (CABG), vascular surgery Additional surgical history: stents, valve replacement - Social History Smoking Status: Former smoker Alcohol use: none Drug use: none Medications and Allergies Albuterol Sulfate [Ventolin Hfa] 2 puff IH Q4HR PRN 11/02/18 [History] Amlodipine Besylate 10 mg PO DAILY 11/02/18 [History] Aspirin [Lo-Dose Aspirin EC] 81 mg PO DAILY 11/02/18 [History] Bifidobacterium Infantis [Align] 4 mg PO DAILY 11/02/18 [History] Calcium Carbonate/Vitamin D3 [Calcium 600 + Vit D Softgel] 1 cap PO DAILY 11/02/18 [History] Cilostazol [Pletal] 100 mg PO BID 11/02/18 [History] Clopidogrel [Plavix] 75 mg PO DAILY 11/02/18 [History] Ezetimibe [Zetia] 10 mg PO DAILY 11/02/18 [History] Fish Oil/Dha/Epa [Fish Oil 1,200 mg Fish Oil] 1,200 mg PO BID 11/02/18 [History] Insulin ASPART [Novolog Flexpen] 3 unit SQ TIDWM 11/02/18 [History] Insulin Glargine,Hum.rec.anlog [Lantus Solostar] 15 unit SQ DAILY 11/02/18 [History] Labetalol HCl 200 mg PO BID 11/02/18 [History] Multivit-Min/Iron/Folic Acid/K [Adults Multivitamin Tablet] 1 each PO DAILY 11/02/18 [History] Nitroglycerin [Nitrostat] 0.4 mg SL Q5MIN 11/02/18 [History] Ondansetron HCl 8 mg PO Q6HR PRN 11/02/18 [History] Tramadol HCl [Ultram] 50 mg PO Q6H PRN 11/02/18 [History] predniSONE [PredniSONE] 60 mg PO DAILY 11/02/18 [History] Furosemide [Lasix] 40 mg PO BIDDIURETIC #60 tablet 11/05/18 [Rx] GuaiFENesin/Dextromethorphan [Robitussin/Dm] 5 ml PO Q6H PRN #60 udc 11/05/18 [Rx] Haloperidol Oral Conc [Haldol] 1 mg PO TID PRN 3 Days #10 mls 11/05/18 [Rx] LORazepam Oral Conc [Ativan Oral Conc] 1 mg PO Q3H PRN 3 Days #10 mls 11/05/18 [Rx] Morphine Sulfate Oral CONC [Roxanol Oral Conc] 5 mg PO Q3H PRN 4 Days #10 oral.syg 11/05/18 [Rx] Allergy/AdvReac Type Severity Reaction Status Date / Time ciprofloxacin Allergy Hives Verified 11/02/18 00:19 [id number] Reductase Allergy Muscle Pain Verified 11/02/18 00:19 Inhibitor ROS unobtainable: due to mental status Palliative Care-Exam - Constitutional Vitals: Temp Pulse Resp BP Pulse Ox 98.2 F 78 19 147/54 90 11/05/18 11:53 11/05/18 11:53 11/05/18 11:53 11/05/18 11:53 11/05/18 11:53 Exam: General: Patient is drowsy, confused. ENT: Mucous membranes moist Respiratory: Coarse breath sounds, basal crackles bilaterally, use accessory muscles. Cardiovascular: Regular rate and rhythm. Trace pedal edema Abdomen: Abdomen is soft, nontender. Bowel sounds are present Musculoskeletal: Spontaneously moving all extremities Skin: warm, dry, intact. Neuro: drowsy and confused, moving all limbs, agitated. Internal Medicine - CN: Reslt - Labs CBC & Chem 7: 11/04/18 03:47 11/04/18 03:47 - ABG Interpretation ABG results: ABG ABG pH 7.43 pH Units (7.32-7.45) 11/02/18 03:52 ABG pCO2 27 mmHg (35-45) L 11/02/18 03:52 ABG pO2 69 mmHg (85-104) L 11/02/18 03:52 ABG O2 Saturation 94 % (95-98) L 11/02/18 03:52 PT/INR, D-dimer PT 12.3 Seconds (9.4-12.1) H 11/02/18 00:35 Consult Discharge Plan - Plan Instructions: Acute Respiratory Distress Syndrome (DC), Hospice Care (GEN) Referrals: Mary Anne Brown MD [Primary Care Provider] - Prescriptions: LORazepam Oral Conc [Ativan Oral Conc] 1 mg PO Q3H PRN 3 Days #10 mls PRN Reason: Anxiety Haloperidol Oral Conc [Haldol] 1 mg PO TID PRN 3 Days #10 mls PRN Reason: Agitation Furosemide [Lasix] 40 mg PO BIDDIURETIC #60 tablet GuaiFENesin/Dextromethorphan [Robitussin/Dm] 5 ml PO Q6H PRN #60 udc PRN Reason: Cough Morphine Sulfate Oral CONC [Roxanol Oral Conc] 5 mg PO Q3H PRN 4 Days #10 oral.syg PRN Reason: Dyspnea Palliative Quality Palliative Quality: Screen for Code Status: Yes, Screen for Goals of Care: Yes, Screen for Pain: Yes, If Pain Regimen Started, Initiate Bowel Regimen: Yes, Screen for Nausea/Vomitting: Yes Code Status: 11/02/18 00:06 Resuscitation Status: Active [RES] Routine Comment: Resuscitation Status: DNR-Comfort Care-Arrest 11/02/18 15:01 DNR [Resuscitation Status: Active] [RES] Routine Comment: Resuscitation Status: [id number] 11/05/18 10:50 Resuscitation Status: Active [RES] Routine Comment: Resuscitation Status: DNR-Comfort Care Palliative Scale - Palliative Performance Scale How ambulatory is this patient?: Mainly in bed What is patient's level of activity and evidence of disease?: Unable to do any work, Extensive disease How much self-care assistance does patient require?: Total care How much oral intake does the patient have?: Minimal to sips What is this patient's level of consciousness?: Full or confusion Palliative Performance Score: 30 %
--- NOTE | 2018-11-05 12:22 | Discharge Summary ---
- NOTES TO OUTPATIENT PROVIDER Notes to Outpatient Provider: Follow-up with home hospice service. Orders not resulted at time of discharge: Pending orders 11/02/18 12:20 Urinalysis Reflex Cult & Micro [URIN] Routine 11/02/18 12:23 Eosinophil,Urine [URIN] Routine Date of Encounter: 11/05/18 Time of Encounter: 11:00 - Discharge Diagnosis (1) Acute respiratory failure with hypoxia Priority: Primary Status: Acute (2) History of lung cancer Priority: Secondary Status: Acute (3) Chest pain Priority: Secondary Status: Resolved Qualifiers: Qualified Code(s): R07.9 - Chest pain, unspecified (4) Hyperkalemia Priority: Secondary Status: Resolved (5) Acute exacerbation of CHF (congestive heart failure) Priority: Secondary Status: Acute Qualifiers: Qualified Code(s): I50.9 - Heart failure, unspecified (6) Acute kidney injury superimposed on chronic kidney disease Priority: Secondary Status: Acute (7) CKD (chronic kidney disease) stage 4, GFR 15-29 ml/min Priority: Secondary Status: Chronic Hospital course: Mr. 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 Chest x-ray initially showed increased interstitial marking suspecting for pneumonia versus worsening his underlying lung disease. Patient and his family preference was to transition to home hospice. The family opted for comfort care and withdrawal of life prolonging medications thus no antibiotics were given to the patient. Palliative team was consulted and they help to arrange for home hospice and prescription medications. He was also noted to have increase oxygen requirements up to 15 L. Palliative team arranged for home oxygen and hospital bed at home. Patient could not tolerate BiPAP for which the family asked not to order it. Today, patient will be discharged to home hospice. Discharge discussed with: patient - Time Spent with Patient Total time spent providing and/or coordinating discharge services: 50 minutes - Discharge Medications Prescriptions: New LORazepam Oral Conc [Ativan Oral Conc] 1 mg PO Q3H PRN 3 Days #10 mls PRN Reason: Anxiety Haloperidol Oral Conc [Haldol] 1 mg PO TID PRN 3 Days #10 mls PRN Reason: Agitation Morphine Sulfate Oral CONC [Roxanol Oral Conc] 5 mg PO Q3H PRN 4 Days #10 oral.syg PRN Reason: Dyspnea Furosemide [Lasix] 40 mg PO BIDDIURETIC #60 tablet GuaiFENesin/Dextromethorphan [Robitussin/Dm] 5 ml PO Q6H PRN #60 udc PRN Reason: Cough Continued Clopidogrel [Plavix] 75 mg PO DAILY Cilostazol [Pletal] 100 mg PO BID Ondansetron HCl 8 mg PO Q6HR PRN PRN Reason: Nausea Nitroglycerin [Nitrostat] 0.4 mg SL Q5MIN Multivit-Min/Iron/Folic Acid/K [Adults Multivitamin Tablet] 1 each PO DAILY Labetalol HCl 200 mg PO BID Insulin Glargine,Hum.rec.anlog [Lantus Solostar] 15 unit SQ DAILY Insulin ASPART [Novolog Flexpen] 3 unit SQ TIDWM Fish Oil/Dha/Epa [Fish Oil 1,200 mg Fish Oil] 1,200 mg PO BID Ezetimibe [Zetia] 10 mg PO DAILY Calcium Carbonate/Vitamin D3 [Calcium 600 + Vit D Softgel] 1 cap PO DAILY Bifidobacterium Infantis [Align] 4 mg PO DAILY Aspirin [Lo-Dose Aspirin EC] 81 mg PO DAILY Amlodipine Besylate 10 mg PO DAILY Albuterol Sulfate [Ventolin Hfa] 2 puff IH Q4HR PRN PRN Reason: Shortness Of Breath/Wheezing predniSONE [PredniSONE] 60 mg PO DAILY Tramadol HCl [Ultram] 50 mg PO Q6H PRN PRN Reason: Pain Discontinued Azithromycin 250 mg PO DAILY Home Medications: Albuterol Sulfate [Ventolin Hfa] 2 puff IH Q4HR PRN 11/02/18 [History] Amlodipine Besylate 10 mg PO DAILY 11/02/18 [History] Aspirin [Lo-Dose Aspirin EC] 81 mg PO DAILY 11/02/18 [History] Bifidobacterium Infantis [Align] 4 mg PO DAILY 11/02/18 [History] Calcium Carbonate/Vitamin D3 [Calcium 600 + Vit D Softgel] 1 cap PO DAILY 11/02/18 [History] Cilostazol [Pletal] 100 mg PO BID 11/02/18 [History] Clopidogrel [Plavix] 75 mg PO DAILY 11/02/18 [History] Ezetimibe [Zetia] 10 mg PO DAILY 11/02/18 [History] Fish Oil/Dha/Epa [Fish Oil 1,200 mg Fish Oil] 1,200 mg PO BID 11/02/18 [History] Insulin ASPART [Novolog Flexpen] 3 unit SQ TIDWM 11/02/18 [History] Insulin Glargine,Hum.rec.anlog [Lantus Solostar] 15 unit SQ DAILY 11/02/18 [History] Labetalol HCl 200 mg PO BID 11/02/18 [History] Multivit-Min/Iron/Folic Acid/K [Adults Multivitamin Tablet] 1 each PO DAILY 11/02/18 [History] Nitroglycerin [Nitrostat] 0.4 mg SL Q5MIN 11/02/18 [History] Ondansetron HCl 8 mg PO Q6HR PRN 11/02/18 [History] Tramadol HCl [Ultram] 50 mg PO Q6H PRN 11/02/18 [History] predniSONE [PredniSONE] 60 mg PO DAILY 11/02/18 [History] Furosemide [Lasix] 40 mg PO BIDDIURETIC #60 tablet 11/05/18 [Rx] GuaiFENesin/Dextromethorphan [Robitussin/Dm] 5 ml PO Q6H PRN #60 udc 11/05/18 [Rx] Haloperidol Oral Conc [Haldol] 1 mg PO TID PRN 3 Days #10 mls 11/05/18 [Rx] LORazepam Oral Conc [Ativan Oral Conc] 1 mg PO Q3H PRN 3 Days #10 mls 11/05/18 [Rx] Morphine Sulfate Oral CONC [Roxanol Oral Conc] 5 mg PO Q3H PRN 4 Days #10 oral.syg 11/05/18 [Rx] Allergies/Adverse Reactions: Allergy/AdvReac Type Severity Reaction Status Date / Time ciprofloxacin Allergy Hives Verified 11/02/18 00:19 [id number] Reductase Allergy Muscle Pain Verified 11/02/18 00:19 Inhibitor Date of admission: 11/02/18 00:10 Primary care physician: Mary Anne Brown MD Consults: 11/02/18 00:09 Consult to Cardiology [CONS] Routine Comment: Consulting Provider: [facility] [place] Reason for Consult: Chest pain concerning for ACS/CHF Call Completed: No 11/02/18 04:09 Consult to Nephrology [CONS] Routine Consulting Provider: Kidney Nath[facility]/DARWIN/ANDREW/JAYDON Reason for Consult: End-stage renal disease; hyperkalemia Call Completed: No 11/02/18 09:33 Consult to Nurse Navigator [CONS] Routine Comment: copd 11/02/18 11:18 Consult to Palliative Care [CONS] Routine Comment: Consulting Provider: Palliative [facility] [place] Reason for Consult: Goasl of care discussion and hospice referral Call Completed: Yes - Constitutional Vitals: Temp Pulse Resp BP Pulse Ox 98.2 F 78 19 147/54 90 11/05/18 11:53 11/05/18 11:53 11/05/18 11:53 11/05/18 11:53 11/05/18 11:53 Exam: General: Patient is alert, but not oriented x 3. Mild distress. ENT: Mucous membranes moist Respiratory: Coarse breath sounds, basal crackles bilaterally, use accessory muscles. Cardiovascular: Regular rate and rhythm. Trace pedal edema, right upper sternal ejection murmur. Abdomen: Abdomen is soft, nontender. Bowel sounds are present Musculoskeletal: Spontaneously moving all extremities Skin: warm, dry, intact. Neuro: Alert but not oriented x 3 - Patient Status Disposition: Hospice - Home Condition: Fair Functional capacity at discharge: bed bound Overall status at discharge: patient is not back to baseline - Discharge Instructions Instructions: Acute Respiratory Distress Syndrome (DC), Hospice Care (GEN) Follow Up With: Mary Anne Brown MD [Primary Care Provider] - - Diet and Activity Activity: other (bed bound) Diet: low salt diet
--- NOTE | 2018-11-05 12:33 | Physician Discharge Referral ---
Home Health/Hosp Referral Info Transfer to: Home Health, Hospice Provider in Charge Post Discharge: Operations Research Scientist - Diagnosis (1) Acute respiratory failure with hypoxia Priority: Primary Status: Acute (2) History of lung cancer Priority: Secondary Status: Acute (3) Chest pain Priority: Secondary Status: Resolved (4) Hyperkalemia Priority: Secondary Status: Resolved (5) Acute exacerbation of CHF (congestive heart failure) Priority: Secondary Status: Acute (6) Acute kidney injury superimposed on chronic kidney disease Priority: Secondary Status: Acute (7) CKD (chronic kidney disease) stage 4, GFR 15-29 ml/min Priority: Secondary Status: Chronic - Respiratory Orders Oxygen / L per min (15) Smoking Cessation: Smoking cessation has been advised. For more information, call the [employer] Quit Line at 8-877-TMTF-NOW. - Diet/Nutrition Diet/Nutrition Orders: Cardiac - Activity Activity Orders: Bedrest - Services Needed Home Care Orders: home hospice - Transfer Medications Prescriptions: LORazepam Oral Conc [Ativan Oral Conc] 1 mg PO Q3H PRN 3 Days #10 mls PRN Reason: Anxiety Haloperidol Oral Conc [Haldol] 1 mg PO TID PRN 3 Days #10 mls PRN Reason: Agitation Furosemide [Lasix] 40 mg PO BIDDIURETIC #60 tablet GuaiFENesin/Dextromethorphan [Robitussin/Dm] 5 ml PO Q6H PRN #60 udc PRN Reason: Cough Morphine Sulfate Oral CONC [Roxanol Oral Conc] 5 mg PO Q3H PRN 4 Days #10 oral.syg PRN Reason: Dyspnea Home Medications: Albuterol Sulfate [Ventolin Hfa] 2 puff IH Q4HR PRN 11/02/18 [History] Amlodipine Besylate 10 mg PO DAILY 11/02/18 [History] Aspirin [Lo-Dose Aspirin EC] 81 mg PO DAILY 11/02/18 [History] Bifidobacterium Infantis [Align] 4 mg PO DAILY 11/02/18 [History] Calcium Carbonate/Vitamin D3 [Calcium 600 + Vit D Softgel] 1 cap PO DAILY 11/02/18 [History] Cilostazol [Pletal] 100 mg PO BID 11/02/18 [History] Clopidogrel [Plavix] 75 mg PO DAILY 11/02/18 [History] Ezetimibe [Zetia] 10 mg PO DAILY 11/02/18 [History] Fish Oil/Dha/Epa [Fish Oil 1,200 mg Fish Oil] 1,200 mg PO BID 11/02/18 [History] Insulin ASPART [Novolog Flexpen] 3 unit SQ TIDWM 11/02/18 [History] Insulin Glargine,Hum.rec.anlog [Lantus Solostar] 15 unit SQ DAILY 11/02/18 [History] Labetalol HCl 200 mg PO BID 11/02/18 [History] Multivit-Min/Iron/Folic Acid/K [Adults Multivitamin Tablet] 1 each PO DAILY 11/02/18 [History] Nitroglycerin [Nitrostat] 0.4 mg SL Q5MIN 11/02/18 [History] Ondansetron HCl 8 mg PO Q6HR PRN 11/02/18 [History] Tramadol HCl [Ultram] 50 mg PO Q6H PRN 11/02/18 [History] predniSONE [PredniSONE] 60 mg PO DAILY 11/02/18 [History] Furosemide [Lasix] 40 mg PO BIDDIURETIC #60 tablet 11/05/18 [Rx] GuaiFENesin/Dextromethorphan [Robitussin/Dm] 5 ml PO Q6H PRN #60 udc 11/05/18 [Rx] Haloperidol Oral Conc [Haldol] 1 mg PO TID PRN 3 Days #10 mls 11/05/18 [Rx] LORazepam Oral Conc [Ativan Oral Conc] 1 mg PO Q3H PRN 3 Days #10 mls 11/05/18 [Rx] Morphine Sulfate Oral CONC [Roxanol Oral Conc] 5 mg PO Q3H PRN 4 Days #10 oral.syg 11/05/18 [Rx] Allergies/Adverse Reactions: Allergy/AdvReac Type Severity Reaction Status Date / Time ciprofloxacin Allergy Hives Verified 11/02/18 00:19 [id number] Reductase Allergy Muscle Pain Verified 11/02/18 00:19 Inhibitor Certification: Further, I certify that my clinical findings support that this patient is homebound (i.e. absences from home require considerable and taxing effort and are for medical reasons or anglican services or infrequently or short duration when for other reasons) because: Homebound Reason: Patient requires assistance of a person or device to safely leave home Attestation: My signature below is to certify that this patient is under my care and that I, or nurse practitioner, or a physician's acute care certified nursing assistant working with me, has a [id number] encounter with this patient.
[2018-11-05] MEDS: Morphine Sulfate Oral CONC 10 MG/0.5 ML ORAL.SYG SL PRN (12:44)
--- NOTE | 2018-11-07 13:09 | Electrocardiograph Report ---
[address] [place], [place] [address] Test Date: 2018-11-02 Pat Name: José Antonio Starkey Department: 112 Room: 2A Gender: Leather Toggler: EVELIO : 1935 Requested By: Blossom Burns Order Number: [id number] Reading MD: Jaime Cheatham Measurements Intervals Halfway Rate: 90 P: 38 WI: 165 QRS: 57 QRSD: 112 T: 81 QT: 349 QTc: 397 Interpretive Statements SINUS RHYTHM LEFT ATRIAL ENLARGEMENT Lateral ischemia BASELINE ARTIFACT Electronically Signed On 11-07-2018 13:07:40 EDT by Jaime Cheatham
== END 2018-11-05 14:26 | disposition hospice, home (50) | DRG 189 ==
LOC: 2ANU → SUATTDRO 11-02 00:10
PROVIDERS: ADMIT Internal Medicine; ATTEND Internal Medicine